=== PATIENT | female | born 1990 | race Caucasian/White ===

== ENCOUNTER 2018-03-31 10:28 | Emergency (ER) | payer SELFPAY ==
[~2018-03-31] VITALS: Ht 154.9 cm; Wt 73.0 kg
[2018-03-31] MEDS ORDERED: FAMOTIDINE 20MG/2ML VIAL IV STA (10:46)
[2018-03-31] MEDS ORDERED: ONDANSETRON HCL 4MG/2ML VIAL IV STA (10:46)
[2018-03-31] MEDS ORDERED: SODIUM CHLORIDE 0.9% 1,000 ML IV ONE (10:46)
[2018-03-31] MEDS ORDERED: MORPHINE SULFATE 4 MG/ML CPJ (NOT FOR IM USE) IV STA (10:46)
[2018-03-31 11:04] LABS: CLARITY URINE CLEAR (CLEAR); COLOR URINE YELLOW (YELLOW); KETONES URINE NEGATIVE (NEGATIVE); LEUKOCYTE ESTERASE URINE TRACE (NEGATIVE); NITRITE URINE NEGATIVE (NEGATIVE); OCCULT BLOOD URINE NEGATIVE (NEGATIVE); PROTEIN URINE NEGATIVE (NEGATIVE); SPECIFIC GRAVITY URINE 1.021 (1.005-1.030)
[2018-03-31 11:11] LABS: BASOPHILS % 0.8 % (0.0-2.0); EOSINOPHILS % 1.3 % (0.0-5.0); HEMATOCRIT. 40.8 % (36.0-48.0); HEMOGLOBIN. 14.7 g/dL (12.0-16.0); MEAN CORPUSCULAR VOLUME 85.8 fL (81.0-99.0); MEAN PLATELET VOLUME 7.6 fl (7.4-10.4); MONOCYTES % 6.6 % (2.0-8.0); NEUTROPHILS % 63.3 % (40.0-76.0); PLATELET 291 x1000/uL (130-400); RED BLOOD CELL COUNT 4.75 mill/uL (4.2-5.4); RED CELL DISTRIBUTION WIDTH 14.2 % (11.6-14.6)
[2018-03-31 11:16] LABS: CHLORIDE 104 mEq/L (98-107)
[2018-03-31 11:20] LABS: HCG SCREEN NEGATIVE
[2018-03-31 11:22] LABS: INR 1.1; PARTIAL THROMBOPLASTIN TIME 28.9 sec (23.4-31.0); PROTHROMBIN TIME 10.9 sec (9.4-11.6)
[2018-03-31 15:15] VITALS: BP 127/71
== END 2018-03-31 15:18 | disposition home or self-care (01) ==
LOC: ER 11:17
DX: R10.12 Left upper quadrant pain (principal); R07.89 Other chest pain; R11.10 Vomiting, unspecified; E86.0 Dehydration; K21.9 Gastro-esophageal reflux disease without esophagitis
CPT/HCPCS: 36415; 71045; 74176; 80053; 81003; 83690; 84703; 85025; 85610; 85730; 87077; 87086; 93005; 96361; 96374; 96375; 99285; J2270; J2405; J3490; J7030

== ENCOUNTER 2020-12-19 13:09 | Emergency (ER) | payer BC ==
[~2020-12-19] VITALS: Ht 154.9 cm; Wt 73.0 kg
[2020-12-19 13:58] VITALS: BP 100/76
== END 2020-12-19 13:58 | disposition home or self-care (01) ==
LOC: ER 13:09
DX: K14.6 Glossodynia (principal); Z98.890 Other specified postprocedural states
CPT/HCPCS: 99281